=== PATIENT | female | born 1935 | race Caucasian/White ===

== ENCOUNTER 2022-05-11 18:54 | Emergency (ER) | payer OTHER ==
[~2022-05-11] VITALS: Ht 167.6 cm; Wt 74.8 kg
--- NOTE | 2022-05-11 18:59 | NUR ---
PT TAKEN TO BED 02 BY [facility]
[2022-05-11 19:01] VITALS: BP 115/62
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
--- NOTE | 2022-05-11 19:19 | NUR ---
report given to margarita najera
--- NOTE | 2022-05-11 19:29 | NUR ---
Patient received on bed lying comfortably and asleep. No acute distress. No signs of pain or discomfort. Respirations even and unlabored.
--- NOTE | 2022-05-11 19:34 | NUR ---
Dr. Pickett examining patient.
--- NOTE | 2022-05-11 19:54 | NUR ---
X-Ray at bedside.
[2022-05-12 01:29] LABS: BASOPHILS % (AUTO) 0.6 % (0.0-2.0); EOSINOPHILS % (AUTO) 0.7 % (0.0-4.0); HEMATOCRIT 28.1 % (36-48); HEMOGLOBIN 9.4 g/dL (12.0-16.0); LYMPHOCYTES # (AUTO) 1.4 K/uL (2.5-16.5); LYMPHOCYTES % (AUTO) 23.6 % (20.5-51.1); MEAN CORPUSCULAR HEMOGLOBIN 28 pg (27-31); MEAN CORPUSCULAR HGB CONC 33 g/dL (33-37); MONOCYTES # (AUTO) 0.5 K/uL (0.8-1.0); NEUTROPHILS # (AUTO) 3.8 K/uL (1.8-7.7); NEUTROPHILS % (AUTO) 66.1 % (42.2-75.2); PLATELET COUNT (AUTO) 173 K/uL (140-450); RED BLOOD CELL COUNT(AUTO) 3.39 MIL/uL (4.20-5.40); RED CELL DISTRIBUTION WIDTH 16.3 % (11.6-13.7); WHITE BLOOD COUNT (AUTO) 5.7 K/uL (4.8-10.8)
[2022-05-12 02:10] LABS: APPEARANCE,URINE CLEAR (CLEAR); BILIRUBIN,URINE NEGATIVE (NEGATIVE); BLOOD, URINE NEGATIVE (NEGATIVE); COLOR,URINE YELLOW (YELLOW); LEUKOCYTE ESTERASE ,URINE NEGATIVE (NEGATIVE); NITRITE, URINE NEGATIVE (NEGATIVE); PH,URINE 6.5 (5.0-9.0); UGLUCOSE NEGATIVE (NEGATIVE)
--- NOTE | 2022-05-12 02:16 | NUR ---
Spoke with patient's family (Ladonna) to update patient's status.
[2022-05-12 05:34] VITALS: BP 129/63
--- NOTE | 2022-05-12 05:35 | NUR ---
Patient discharged with v/s stable and accompanied by daughter. Written and verbal after care instructions given and explained. Patient verbalized understanding. Wheel Chair Assisted with to car. All questions addressed prior to discharge. Advised to follow up with PMD.
== END 2022-05-12 05:35 | disposition home or self-care (01) ==
LOC: MED 18:54
DX: S80.11XA Contusion of right lower leg, initial encounter (principal); S80.12XA Contusion of left lower leg, initial encounter; I48.91 Unspecified atrial fibrillation; F03.90 Unspecified dementia, unspecified severity, without behavioral disturbance, psychotic disturbance, mood disturbance, and anxiety; E11.9 Type 2 diabetes mellitus without complications; Z86.73 Personal history of transient ischemic attack (TIA), and cerebral infarction without residual deficits; W22.8XXA Striking against or struck by other objects, initial encounter; Y92.89 Other specified places as the place of occurrence of the external cause; Y93.89 Activity, other specified; Y99.8 Other external cause status
CPT/HCPCS: 36415; 70450; 71045; 73590; 80053; 81003; 83605; 85025; 87040; 93005; 99285; Q0092